=== PATIENT | male | born 1930 | race American Indian/Alaskan Native ===

== ENCOUNTER 2016-08-25 13:49 | Outpatient (CLI) | payer BC ==
--- NOTE | 2016-08-26 09:21 | Cat Scan Report ---
CT ABDOMEN AND PELVIS WITHOUT CONTRAST INDICATION: Urinary tract infection. COMPARISON: 09/28/2010 FINDINGS: Noncontrast abdomen and pelvis CT performed. LUNG BASES: Few small bibasilar pneumatoceles and slight scarring/dependent atelectasis again seen. Nonspecific distal esophageal wall prominence/thickening, not excluded for gastroesophageal reflux and/or hiatal hernia, amongst others. ABDOMEN: Please note that sensitivity to detect small visceral lesions is limited due to the absence of intravenous or oral contrast. Few hepatic hypodensities, some subcentimeter and indeterminate as on axial image 91, series 2 may be new while the largest 3 cm simple cyst inferiorly again seen as on axial image 114, series 2. Approximately 2.3 cm left lower renal cortical cyst medially also again seen, axial image 151. Otherwise grossly unremarkable unenhanced liver, spleen, gallbladder, pancreas, nonaneurysmal abdominal aorta with few atherosclerotic calcifications, IVC and nonhydronephrotic kidneys. No radiopaque calculi. No ascites or size significant adenopathy. Stable slight diffuse hypodense adrenal prominence/hyperplasia. Nonopacified GI tract evaluation limited, though grossly nonobstructive. Normal appendix. Mild stool throughout colon/possible constipation. Stable fat-containing umbilical hernia with a transverse neck of 1.4 cm. PELVIS: Prostate again enlarged to approximately 5.5 cm AP x 5.3 cm transverse with a lobulated impression at the bladder base. Few prostatic calcifications also again seen. Approximately 2.2 cm urinary bladder diverticulum near the base on the left, axial image 248, series 2, previously 1.5 cm. Unenhanced urinary bladder otherwise unremarkable with interval resolution of intrinsic hyperdense presumed hematoma. Usual rectosigmoid stool. No free fluid or significant adenopathy. Stable fat containing bilateral inguinal hernias, 2.7 cm on the right and 3.4 cm on the left, axial image 292. Large, 9.4 x 4.7 cm right groin lipoma adjacent to the obturator externus muscle again partially imaged, axial image 321. Multilevel spinal degenerative changes, including endplate irregularity/Schmorl's nodes, mild vertebral body and facet degenerative spurring as also disc degeneration with narrowing and vacuum phenomenon, more so at mid to lower lumbar levels and greatest/severe at L3-L4 and L4-L5. CONCLUSION: 1. Enlarged prostate again noted with interval resolution of intravesicular presumed hematoma since September 2010, as described. Small urinary bladder diverticulum. Please correlate. 2. Various other incidental findings, including hepatic hypodensities/cysts, small left renal cyst, bilateral adrenal hyperplasia, umbilical and bilateral inguinal fat-containing hernias, right groin lipoma and multilevel spinal degenerative changes, amongst others, as described. Thank you for the opportunity to participate in this patient's care.
== END 2016-08-25 13:50 | disposition home or self-care (01) ==
LOC: CT 13:49
PROVIDERS: ATTEND Urology
DX: N20.0 Calculus of kidney (principal); N39.0 Urinary tract infection, site not specified; K40.20 Bilateral inguinal hernia, without obstruction or gangrene, not specified as recurrent; D17.79 Benign lipomatous neoplasm of other sites; N40.0 Benign prostatic hyperplasia without lower urinary tract symptoms; N32.3 Diverticulum of bladder; K68.9 Other disorders of retroperitoneum; K42.9 Umbilical hernia without obstruction or gangrene; M47.896 Other spondylosis, lumbar region
CPT/HCPCS: 74176

== ENCOUNTER 2020-06-21 10:30 | Emergency (ER) | payer MEDICARE ==
--- NOTE | 2020-06-21 11:02 | Event Note ---
ED Screening Note Date of service: 06/21/20 Time: 10:56 ED Screening Note: 89-year-old -[place] male presents to the emergency room for having 1 week history of kidney infection. Admits to dysuria. Cloudy urine and foul odor to the urine. Denies any hematuria. Denies any back pain denies any nausea vomiting fever or chills. This initial assessment/diagnostic orders/clinical plan/treatment(s) is/are subject to change based on patients health status, clinical progression and re- assessment by fellow clinical providers in the ED. Further treatment and workup at subsequent clinical providers discretion. Patient/guardian urged not to elope from the ED as their condition may be serious if not clinically assessed and managed. Initial orders include:
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
[2020-06-21 11:25] LABS: Bacteria,Urine 2+ /HPF (Negative); Bilirubin,Urine NEG (Negative); Blood,Urine SM (Negative); Color,Urine Yellow (Yellow); Mucus,Urine 1+ /HPF; Urobilinogen,Urine < 2.0 mg/dL (<2.0)
[2020-06-21 11:27] LABS: WBC,Urine > 182.0 /HPF (0.0-6.0)
[2020-06-21 11:28] LABS: Basophils % (Auto) 1.1 % (0.0-1.8); Hematocrit 38.8 % (35.5-45.6); Hemoglobin 13.4 gm/dl (11.8-15.2); Lymphocytes # (Auto) 1.6 K/mm3 (1.2-5.4); Lymphocytes % (Auto) 38.7 % (13.4-35.0); Mean Corpuscular HGB Conc 34 % (32-34); Mean Corpuscular Volume 85 fl (84-94); Monocytes # (Auto) 0.4 K/mm3 (0.0-0.8); Monocytes % (Auto) 8.8 % (0.0-7.3); Platelet Count 185 K/mm3 (140-440); Red Blood Count 4.56 M/mm3 (3.65-5.03); Red Cell Distribution Width 15.6 % (13.2-15.2)
[2020-06-21 11:51] LABS: Alanine Aminotransferase 9 units/L (7-56); BUN/Creatinine Ratio 15; Blood Urea Nitrogen 15 mg/dL (9-20); Calcium 9.5 mg/dL (8.4-10.2); Hemolysis Index 3
[2020-06-21 12:21] VITALS: BP 132/74
== END 2020-06-21 12:19 | disposition home or self-care (01) ==
LOC: ED 10:30
DX: N39.0 Urinary tract infection, site not specified (principal); Z79.899 Other long term (current) drug therapy
CPT/HCPCS: 36415; 80053; 81001; 85025; 99283

== ENCOUNTER 2021-05-14 07:57 | Day surgery (SDC) | payer MEDICARE ==
[~2021-05-14 07:57] MED LIST: LACTATED RINGERS 1,000 ML IV SCH
--- NOTE | 2021-05-14 09:33 | Anesthesia Day of Surgery ---
Anesthesia Day of Surgery - Day of Surgery Patient Examined: Yes Patient H&P Reviewed: Yes Patient is NPO: Yes
--- NOTE | 2021-05-14 09:33 | Anesthesia Consultation ---
Anesthesia Consult and Med Hx Date of service: 05/14/21 - Airway Anesthetic Teeth Evaluation: Good, Chipped (lower incisors; upper incisors missing) ROM Head & Neck: Adequate Mental/Hyoid Distance: Adequate Mallampati Class: Class II - Cardiac Exam Cardiac Exam: RRR - Pre-Operative Health Status ASA Pre-Surgery Classification: ASA3 Proposed Anesthetic Plan: General - Pulmonary Hx Smoking: No Hx Respiratory Symptoms: No Hx Sleep Apnea: No (SNORES- HIGH RISK ON TABBY PRESCREEN) - Cardiovascular System Hx Hypertension: No Hx Heart Attack/AMI: No Hx Percutaneous Transluminal Coronary Angioplasty (PTCA): No Hx Cardia Arrhythmia: Yes (hx arrhythmia monitored by PCP) Hx Pacemaker: No Hx Internal Defibrillator: No - Central Nervous System CVA: No - Endocrine Hx Renal Disease: No Hx Liver Disease: No Hx Insulin Dependent Diabetes: No Hx Non-Insulin Dependent Diabetes: No Hx Thyroid Disease: No - Additional Comments Anesthesia Medical History Comments: No hx anesthetic complications. Preop EKG ordered given hx arrthymia and no baseline EKG on chart. Recently hospitalized for urosepsis, feels back to baseline health at this time.
[2021-05-14] MEDS ORDERED: ceFAZolin/Water 2 GM/20 ML 2 GM/20 ML SYRINGE IV ONE (09:53)
[2021-05-14] MEDS ORDERED: ceFAZolin/STERILE WATER 2 GM/20 ML SYRINGE IV NR (10:00)
[2021-05-14] MEDS ORDERED: propofoL 200 MG/20 ML VIAL IV ONE (10:54)
[2021-05-14] MEDS ORDERED: LIDOCAINE MPF (2%) 20 MG/1 ML VIAL 5 ML ONE (10:55)
[2021-05-14] MEDS ORDERED: ONDANSETRON 4 MG/2 ML INJ ONE (11:47)
--- NOTE | 2021-05-14 11:55 | Short Stay Summary ---
Short Stay Documentation Date of service: 05/14/21 - History H&P: obtained from office - Allergies and Medications Current Medications: Allergies No Known Allergies Allergy (Verified 05/05/21 11:39) Home Medications Medication Instructions Recorded Confirmed Last Taken Type Brimonidine Tartrate [Brimonidine 1 drop OD BID 05/05/21 05/05/21 05/04/21 History Tartrate 0.2%] Dorzolamide HCl/Timolol Maleat 1 drop OU BID 05/05/21 05/05/21 05/04/21 History [Dorzolamide-Timolol Eye Drops] Finasteride [Proscar] 5 mg PO QDAY 05/05/21 05/05/21 05/02/21 History Latanoprost 0.005% 1 drop OU QHS 05/05/21 05/05/21 05/04/21 History Tamsulosin [Flomax] 0.8 mg PO QDAY 05/05/21 05/05/21 05/02/21 History levoFLOXacin [Levaquin TAB] 500 mg PO QDAY #3 tablet 05/11/21 Unknown Rx Active Medications Lactated Ringer's (Lactated Ringers) 1,000 mls @ 100 mls/hr IV DIRECT MAGDA Stop: 05/14/21 23:59 - Brief post op/procedure progress note Date of procedure: 05/14/21 Pre-op diagnosis: rt renal stone 1cm, indwelling stent Post-op diagnosis: same Procedure: ESWL Anesthesia: GETA Surgeon: CHRIS MARINELLI Condition: stable - Hospital course Hospital course: norco & post op info on chart - Disposition Condition at discharge: Stable Disposition: 01 HOME / SELF CARE / HOMELESS Short Stay Discharge Plan Follow up with: OLU GRAHAM MD [Primary Care Provider] - 7 Days
--- NOTE | 2021-05-14 12:58 | Operative Report ---
DATE OF SURGERY: 05/14/2021 PREOPERATIVE DIAGNOSIS: Right renal stone, status post stent placement via nephrostomy tube. POSTOPERATIVE DIAGNOSIS: Right renal stone, status post stent placement via nephrostomy tube. PROCEDURE: Right extracorporal shockwave lithotripsy. SURGEON: Jonas Bailon MD ANESTHESIA: General. ESTIMATED BLOOD LOSS: Minimal. FLUIDS: Crystalloid. COMPLICATIONS: No complications. INDICATIONS: This patient is an 89-year-old male, known to our service with BPH, recently presented to the hospital with flank pain and altered mental status. Evaluation involved CT of abdomen and pelvis and was found to have a 1 cm stone. He underwent emergent nephrostomy tube placement and cleared his infection. Dr. Richardson then placed an indwelling double-J stent and removed the nephrostomy tube. He went home, did well and he presents now for lithotripsy. Risks, benefits, complications were explained to the patient and his and they agreed to proceed with surgical intervention. DESCRIPTION OF PROCEDURE: The patient was taken to the operative suite and placed in a supine position. After adequate general anesthesia, the 1 cm stone was localized in 2 planes using fluoroscopy. Extracorporal shock wave lithotripsy was administered with a maximum kV of 7 and 2500 shocks. A 5-minute renal pause after 200 shocks. Adequate fragmentation could be appreciated. The patient tolerated the procedure well and was extubated and taken to recovery room. He will go home on [place] and a strainer and follow up in the office for stent removal. TID: [id number] RECEIPT: [id number] [facility]/[place]
--- NOTE | 2021-05-14 13:24 | Electrocardiograph Report ---
[facility] Test Date: 2021-05-14 Test Time: 09:41:34 Pat Name: JERRY BURNS Department: Room: Gender: M Internal Audit Manager: DIANA : [id number] Requested By: FITZ POOL Order Number: [id number] Reading MD: Demi Vega Measurements Intervals [place] Rate: 61 P: 48 ME: 200 QRS: 9 QRSD: 88 T: 19 QT: 445 QTc: 441 Interpretive Statements Sinus rhythm Atrial premature complex ST changes consistent with early repolarization No previous ECG available for comparison Electronically Signed On 05-14-2021 13:24:40 EST by Demi Vega
[2021-05-14 13:25] VITALS: BP 126/90
--- NOTE | 2021-05-14 15:07 | Post Anesthesia Evaluation ---
- Post Anesthesia Evaluation Patient Participated: Yes Airway Patent: Yes Stable Respiratory Function: Yes Nausea/Vomiting: No Temp > 96.8F: Yes Pain Manageable: Yes Adequeate Hydration: Yes Anesthesia Complications: No
== END 2021-05-14 13:10 | disposition home or self-care (01) ==
LOC: OR 07:57
PROVIDERS: ATTEND Urology
DX: N13.2 Hydronephrosis with renal and ureteral calculous obstruction (principal); H40.9 Unspecified glaucoma; I42.9 Cardiomyopathy, unspecified; K21.9 Gastro-esophageal reflux disease without esophagitis; Z72.89 Other problems related to lifestyle; Z20.822 Contact with and (suspected) exposure to COVID-19; Z79.899 Other long term (current) drug therapy; Z87.440 Personal history of urinary (tract) infections; Z98.41 Cataract extraction status, right eye; Z98.42 Cataract extraction status, left eye; Z98.890 Other specified postprocedural states
CPT/HCPCS: 50590; 93005; 93010; J0690; J2405; J2704; J3490; J7120; U0003

== ENCOUNTER 2021-05-15 00:15 | Emergency (ER) | payer MEDICARE ==
[2021-05-15] MEDS ORDERED: SODIUM CHLORIDE 0.9% 1000 ML 1,000 ML IV ONE ×2 (00:32→02:09)
[2021-05-15 00:57] LABS: Hematocrit 26.5 % (35.5-45.6); Hemoglobin 9.3 gm/dl (11.8-15.2); Mean Corpuscular HGB Conc 35 % (32-34); Mean Corpuscular Volume 82 fl (84-94); Platelet Count 174 K/mm3 (140-440); Red Blood Count 3.25 M/mm3 (3.65-5.03); Red Cell Distribution Width 15.3 % (13.2-15.2)
[2021-05-15 01:21] LABS: Alanine Aminotransferase 13 units/L (7-56); Albumin 2.6 g/dL (3.9-5); BUN/Creatinine Ratio 11; Blood Urea Nitrogen 13 mg/dL (9-20); Hemolysis Index 4; INR 1.25 (0.87-1.13)
--- NOTE | 2021-05-15 01:24 | XRay Report ---
CHEST 1 VIEW INDICATION / CLINICAL INFORMATION: Altered Mental Status. COMPARISON: Chest x-ray 05/03/2021 FINDINGS: SUPPORT DEVICES: None. HEART / MEDIASTINUM: No significant abnormality. LUNGS / PLEURA: No significant pulmonary or pleural abnormality. No pneumothorax. ADDITIONAL FINDINGS: No significant additional findings. IMPRESSION: 1. No active cardiopulmonary disease. Signer Name: Kulwant Anglin II, MD Signed: 05/15/2021 1:19 AM Workstation Name: [id number]
[2021-05-15 03:24] LABS: Bacteria,Urine 4+ /HPF (Negative); Bilirubin,Urine NEG (Negative); Blood,Urine LG (Negative); Color,Urine Yellow (Yellow); Urobilinogen,Urine < 2.0 mg/dL (<2.0)
[2021-05-15 03:26] LABS: RBC,Urine > 182.0 /HPF (0.0-6.0); WBC,Urine > 182.0 /HPF (0.0-6.0)
[2021-05-15 03:33] LABS: Anisocytosis 1+; Band Neutrophils # (Manual) 0.2 K/mm3; Basophils % (Manual) 0 % (0.0-1.8); Eosinophils % (Manual) 0 % (0.0-4.3); Hypochromasia 1+; Platelet Estimate Consistent w Auto; Total Cells Counted 100
[2021-05-15] MEDS ORDERED: cefTRIAXone/NS 1 GM/50 ML 1 GM/50 ML BAG IV ONE (03:43)
--- NOTE | 2021-05-15 05:26 | Cat Scan Report ---
CT ABDOMEN AND PELVIS WITHOUT CONTRAST INDICATION / CLINICAL INFORMATION: Patient had a Lithrotripsy here yesterday, complains of pain now.. TECHNIQUE: Axial CT images were obtained through the abdomen and pelvis without IV contrast. All CT scans at this location are performed using CT dose reduction for ALARA by means of automated exposure control. COMPARISON: CT abdomen and pelvis 05/03/2021 FINDINGS: LOWER CHEST: No significant interval findings. LIVER: Stable hypodensity right hepatic lobe. No significant interval findings. GALLBLADDER: Sludge is not excluded. BILE DUCTS: Not well visualized SPLEEN: No significant abnormality. PANCREAS: No significant abnormality. ADRENALS: No significant abnormality. RIGHT KIDNEY / URETER: Numerous nephroliths similar in appears previous study. Positioning of the rig ht renal stent is stable. Proximal right ureteral stone unchanged in position. LEFT KIDNEY / URETER: Multiple left nephroliths unchanged. Lower pole cyst unchanged. STOMACH / DUODENUM / SMALL BOWEL: No significant abnormality. COLON: No significant abnormality. APPENDIX: No significant abnormality. PERITONEUM: No free air or free fluid are present within the abdomen or pelvis. LYMPH NODES: No significant adenopathy. AORTA / ARTERIES: Moderate atherosclerotic calcification without acute abnormality. IVC / VEINS: No significant abnormality. URINARY BLADDER: Bladder is slightly distended. Distal component stent curled within the bladder. REPRODUCTIVE ORGANS: Significant prostatomegaly unchanged from comparison study. The bladder base is indented and prostate neoplasm not excluded. Left posterolateral bladder diverticulum and small vesic ular stones unchanged. ADDITIONAL ABDOMINAL/PELVIC FINDINGS: None. SKELETAL SYSTEM: No significant interval findings. Large lipoma right hip. IMPRESSION: 1. Stable appearance of right ureteral stent and bilateral nephroliths. No significant change in posi tioning of the proximal right ureteral stone. 2. Prostatomegaly with indentation of the bladder base. Prostate cancer is not excluded. Signer Name: Kulwant Anglin II, MD Signed: 05/15/2021 5:22 AM Workstation Name: [id number]
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
[2021-05-15 06:38] VITALS: BP 109/67
== END 2021-05-15 06:36 | disposition home or self-care (01) ==
LOC: ED 00:15
DX: N39.0 Urinary tract infection, site not specified (principal); N20.0 Calculus of kidney; K21.9 Gastro-esophageal reflux disease without esophagitis; Z98.890 Other specified postprocedural states; Z79.899 Other long term (current) drug therapy
CPT/HCPCS: 36415; 71045; 74176; 80053; 81001; 82140; 82550; 84484; 85007; 85025; 85610; 96361; 96365; 99285; J0696; J7030; 96375; Q0162

== ENCOUNTER 2021-09-22 11:47 | Day surgery (SDC) | payer MEDICARE ==
[2021-09-22] MEDS ORDERED: LIDOCAINE (1%) 10 MG/1 ML VIAL 20 ML MDV ONE (12:10)
[2021-09-22] MEDS ORDERED: BUPIVACAINE/PF (0.5%) 5 MG/1 ML 30 ML VIAL INFILTRATI ONE ×2 (12:10→13:00)
[2021-09-22] MEDS ORDERED: LIDOCAINE (1%) 10 MG/1 ML VIAL 20 ML MDV INFILTRATI ONE (13:00)
--- NOTE | 2021-09-22 13:12 | Procedure Note ---
Date of procedure: 09/22/21 Pre-op diagnosis: Cyst of posterior neck Post-op diagnosis: same Procedure: Excision of cyst of posterior neck Findings: Indication: Patient is a 89 yo male who presented to the office for a workup of a mass located on his posterior neck. On exam, this was felt to be an epidermal cyst. I discussed observation versus excision with the patient. The patient elected for excision. The patient was set up for an elective excision. After all risks were discussed and questions answered, consent was signed in the office. Procedure in detail: Patient was identified in the preoperative area, taken back to the minor procedure room, placed on the stretcher in lateral decubitus position, left side up. The area was prepped and draped in usual sterile fashion and a timeout was performed. Local anesthetic was injected into the s kin at the intended incision site. An elliptical incision was made in the skin over the cyst using a 15 blade. Dissection was carried down through the skin using blunt dissection with a mosquito and blade. The cyst was encountered and the cyst wall was chronically adhered to the surrounding tissue and skin]. Using a combination of blunt dissection with a hemostat and sharp dissection with iris scissors/blade, the cyst wall was carefully dissected away from the surrounding tissue circumferentially. Once normal fatty tissue was identified the cyst wall in its entirety was removed from the subcutaneous tissue using Bovie electrocautery. This was then passed off the table as a specimen. The wound was then irrigated and hemostasis achieved with electrocautery. The cyst measured approximately 2.5 cm and contained thick white material. Once hemostasis was ensured, the deep dermal layer was closed using interrupted 3-0 Vicryl suture. The skin was closed with 4-0 Monocryl subcuticular running stitch and skin glue. After the skin wound was dry, a piece of 4x4 gauze was placed over the incision and compression dressing applied with elastoplast tape. At the end of the case, all sponge, instrument, sharp counts were correct 2. The patient tolerated the procedure very well. He was given discharge instructions and discharged home in stable condition. Anesthesia: local Surgeon: YUE MENDOSA Estimated blood loss: minimal Pathology: list (cyst of posterior neck) Specimen disposition: to lab Condition: stable Disposition: other (HOME)
[2021-09-22 13:28] VITALS: BP 172/108
== END 2021-09-22 11:48 | disposition home or self-care (01) ==
LOC: OR 11:47
PROVIDERS: ATTEND Surgery
DX: R22.1 Localized swelling, mass and lump, neck (principal); L72.0 Epidermal cyst; I10 Essential (primary) hypertension; N40.0 Benign prostatic hyperplasia without lower urinary tract symptoms; I42.9 Cardiomyopathy, unspecified; K21.9 Gastro-esophageal reflux disease without esophagitis; Z80.3 Family history of malignant neoplasm of breast; Z83.3 Family history of diabetes mellitus; Z79.899 Other long term (current) drug therapy; Z87.440 Personal history of urinary (tract) infections; Z98.41 Cataract extraction status, right eye; Z98.42 Cataract extraction status, left eye; Z72.89 Other problems related to lifestyle; Z98.890 Other specified postprocedural states; Z82.49 Family history of ischemic heart disease and other diseases of the circulatory system
CPT/HCPCS: 11423; 12041; 88304; J3490